=== PATIENT | female | born 1950 | race African-American/Black ===

== ENCOUNTER 2020-06-26 14:42 | Inpatient (IN) | payer MEDICARE, MEDICAID ==
[~2020-06-26] VITALS: Ht 167.6 cm; Wt 94.9 kg
[2020-06-26] MEDS ORDERED: MORPHINE SULFATE 4 MG/ML CPJ (NOT FOR IM USE) IV ONE (16:00)
[2020-06-26] MEDS ORDERED: SODIUM CHLORIDE 0.9% 1,000 ML IV ONE (16:00)
[2020-06-26 16:14] LABS: BASOPHILS % 0.6 % (0.0-2.0); EOSINOPHILS % 0.6 % (0.0-5.0); HEMATOCRIT. 38.7 % (36.0-48.0); HEMOGLOBIN. 12.9 g/dL (12.0-16.0); LYMPHOCYTES % 14.1 % (20.0-50.0); MEAN CORPUSCULAR HEMOGLOBIN 29.9 pg (28.0-32.0); MEAN PLATELET VOLUME 8.5 fl (7.4-10.4); MONOCYTES % 6.2 % (2.0-8.0); NEUTROPHILS % 78.5 % (40.0-76.0); PLATELET 267 x1000/uL (130-400)
[2020-06-26 16:19] LABS: PROTHROMBIN TIME 10.7 sec (9.6-11.0)
[2020-06-26 16:21] LABS: CHLORIDE 105 mEq/L (98-107)
[2020-06-26 16:31] LABS: CLARITY URINE TURBID (CLEAR); COLOR URINE ORANGE (YELLOW); KETONES URINE 3+ (NEGATIVE); LEUKOCYTE ESTERASE URINE 2+ (NEGATIVE); NITRITE URINE NEGATIVE (NEGATIVE); OCCULT BLOOD URINE 3+ (NEGATIVE); PROTEIN URINE 2+ (NEGATIVE); SPECIFIC GRAVITY URINE 1.035 (1.005-1.030)
[2020-06-26] MEDS ORDERED: CEFTRIAXONE 1 G PREMIX 50 ML IV ONE (18:15)
[2020-06-26] MEDS ORDERED: ONDANSETRON HCL 4MG/2ML INJ IV PRN (20:00)
[2020-06-26] MEDS ORDERED: IPRATROPIUM/ALBUTEROL 0.5-3(2.5)MG/3ML NEB HHN PRN (20:00)
[2020-06-26] MEDS ORDERED: DIPHENHYDRAMINE 50MG/ML VIAL IV PRN (20:00)
[2020-06-26] MEDS ORDERED: ACETAMINOPHEN 325MG TABLET PO PRN (20:00)
[2020-06-26] MEDS ORDERED: CLONIDINE 0.1MG TABLET PO PRN (20:00)
[2020-06-26 20:11] LABS: PHOSPHORUS 2.5 mg/dL (2.5-4.9)
[2020-06-26] MEDS ORDERED: IOHEXOL-300 100 ML BOTTLE ONE (22:23)
[2020-06-27] MEDS: MORPHINE SULFATE 2 MG/ML CPJ (NOT FOR IM USE) IV PRN ×2 (00:22→13:27)
[2020-06-27 11:30] VITALS: BP 111/53
[2020-06-27 11:34] LABS: BASOPHILS % 0.4 % (0.0-2.0); EOSINOPHILS % 1.9 % (0.0-5.0); HEMATOCRIT. 39.4 % (36.0-48.0); LYMPHOCYTES % 19.1 % (20.0-50.0); MEAN CORPUSCULAR HEMOGLOBIN 30.2 pg (28.0-32.0); MEAN CORPUSCULAR VOLUME 91.6 fL (81.0-99.0); MONOCYTES % 8.1 % (2.0-8.0); NEUTROPHILS % 70.5 % (40.0-76.0); PLATELET 262 x1000/uL (130-400); RED CELL DISTRIBUTION WIDTH 16.6 % (11.6-14.6)
[2020-06-27 11:48] LABS: CHLORIDE 107 mEq/L (98-107)
[2020-06-27 11:54] LABS: LDL CHOLESTEROL 176 mg/dL (5-100)
[2020-06-27 11:55] LABS: HDL CHOLESTEROL 58 mg/dL (40-59)
[2020-06-27 12:00] VITALS: BP 111/53
[2020-06-27 16:00] VITALS: BP 109/40
[2020-06-27] MEDS ORDERED: CEFTRIAXONE 1,000 MG in DEXTROSE 5% WATER 50 ML IV SCH (18:00)
[2020-06-27] MEDS ORDERED: CEFTRIAXONE 1 G PREMIX 50 ML IV SCH (18:00)
[2020-06-27] MEDS ORDERED: DEXTROSE 50% WATER 50ML SYRINGE IV PRN (19:30)
[2020-06-27 20:00] VITALS: BP 112/56
[2020-06-27] MEDS: INSULIN LISPRO 100 UNITS/ML SUBCUT SCH (20:28)
[2020-06-27] MEDS: BLOOD SUGAR DIAGNOSTIC STRIP TEST SCH (20:28)
[2020-06-28] VITALS: BP 103/55
[2020-06-28] MEDS: MORPHINE SULFATE 2 MG/ML CPJ (NOT FOR IM USE) IV PRN ×2 (03:21→09:59)
[2020-06-28 04:00] VITALS: BP 113/66
[2020-06-28] MEDS: INSULIN LISPRO 100 UNITS/ML SUBCUT SCH (06:14)
[2020-06-28] MEDS: BLOOD SUGAR DIAGNOSTIC STRIP TEST SCH (06:14)
[2020-06-28 08:00] VITALS: BP 124/68
[2020-06-28 11:49] VITALS: BP 106/42
[2020-06-28] MEDS ORDERED: HYDROCODONE/ACETAMINOPHEN 5/325MG TABLET PO PRN (12:00)
[2020-06-28] MEDS ORDERED: HYDR-4009 MT (13:08)
[2020-06-28] MEDS ORDERED: ATOR20TA65 MT (13:08)
[2020-06-28] MEDS ORDERED: NITR100C MT (13:08)
[2020-06-28 14:39] VITALS: BP 106/42
[2020-06-28 16:00] VITALS: BP 129/71
== END 2020-06-28 16:58 | disposition home or self-care (01) | DRG 755 ==
LOC: ER 14:42 → MICUSO 23:44 → 8WST 06-27 08:26
PROVIDERS: ADMIT Internal Medicine; ATTEND Internal Medicine
DX: C54.1 Malignant neoplasm of endometrium (principal); N39.0 Urinary tract infection, site not specified; E78.5 Hyperlipidemia, unspecified; M19.90 Unspecified osteoarthritis, unspecified site; N93.9 Abnormal uterine and vaginal bleeding, unspecified
CPT/HCPCS: 36415; 71045; 74177; 80053; 80061; 81003; 82962; 83036; 83605; 83735; 84100; 84443; 85025; 86304; 86850; 86900; 93005; 93970; 96374; 99285; J0696; J2270; J2405; J7030; J7060; Q9967

== ENCOUNTER 2020-06-30 17:12 | Inpatient (IN) | payer MEDICARE, MEDICAID ==
[~2020-06-30] VITALS: Ht 170.2 cm; Wt 98.0 kg
[~2020-06-30 17:12] MED LIST: ATOR20TA65 MT; HYDR-4009 MT; NITR100C MT
[2020-06-30] MEDS ORDERED: SODIUM CHLORIDE 0.9% 1,000 ML IV ONE (18:39)
[2020-06-30] MEDS ORDERED: ONDANSETRON HCL 4MG/2ML INJ IV STA (18:39)
[2020-06-30] MEDS ORDERED: MORPHINE SULFATE 4 MG/ML CPJ (NOT FOR IM USE) IV STA ×2 (18:39→22:45)
[2020-06-30 19:01] LABS: BASOPHILS % 0.3 % (0.0-2.0); EOSINOPHILS % 0.4 % (0.0-5.0); HEMATOCRIT. 34.3 % (36.0-48.0); HEMOGLOBIN. 11.4 g/dL (12.0-16.0); LYMPHOCYTES % 12.3 % (20.0-50.0); MEAN CORPUSCULAR HEMOGLOBIN 30.3 pg (28.0-32.0); MEAN CORPUSCULAR VOLUME 91.1 fL (81.0-99.0); MEAN PLATELET VOLUME 7.7 fl (7.4-10.4); MONOCYTES % 6.4 % (2.0-8.0); NEUTROPHILS % 80.6 % (40.0-76.0); PLATELET 256 x1000/uL (130-400); RED BLOOD CELL COUNT 3.77 mill/uL (4.2-5.4); RED CELL DISTRIBUTION WIDTH 15.8 % (11.6-14.6)
[2020-06-30 19:06] LABS: CHLORIDE 105 mEq/L (98-107)
[2020-06-30 19:11] LABS: PARTIAL THROMBOPLASTIN TIME 26.8 sec (23.4-31.0); PROTHROMBIN TIME 10.8 sec (9.6-11.0)
[2020-06-30 19:34] LABS: CLARITY URINE TURBID (CLEAR); COLOR URINE RED (YELLOW); KETONES URINE 3+ (NEGATIVE); LEUKOCYTE ESTERASE URINE 3+ (NEGATIVE); NITRITE URINE POSITIVE (NEGATIVE); OCCULT BLOOD URINE 2+ (NEGATIVE); PROTEIN URINE 2+ (NEGATIVE); SPECIFIC GRAVITY URINE 1.026 (1.005-1.030); UROBILINOGEN URINE 0.2 E.U./dL (0.2-1.0)
[2020-06-30] MEDS ORDERED: CEFTRIAXONE 1 G PREMIX 50 ML IV ONE (21:00)
[2020-06-30] MEDS ORDERED: CEFTRIAXONE 1 G PREMIX 50 ML IV SCH (22:00)
[2020-06-30] MEDS ORDERED: ONDANSETRON HCL 4MG/2ML INJ IV PRN (22:07)
[2020-06-30] MEDS ORDERED: LORAZEPAM 2MG/ML CPJ IV PRN (22:10)
[2020-06-30] MEDS ORDERED: MORPHINE SULFATE 2 MG/ML CPJ (NOT FOR IM USE) IV PRN (22:10)
[2020-06-30] MEDS ORDERED: CLONIDINE 0.1MG TABLET PO PRN (22:10)
[2020-06-30] MEDS: SODIUM CHLORIDE 0.9% 1,000 ML IV SCH (22:59)
[2020-07-01 01:40] VITALS: BP 117/62
[2020-07-01 04:00] VITALS: BP 104/56
[2020-07-01 07:20] LABS: BASOPHILS % 0.7 % (0.0-2.0); EOSINOPHILS % 1.1 % (0.0-5.0); HEMATOCRIT. 29.9 % (36.0-48.0); MEAN CORPUSCULAR HEMOGLOBIN 30.4 pg (28.0-32.0); MEAN CORPUSCULAR VOLUME 90.6 fL (81.0-99.0); MEAN PLATELET VOLUME 7.6 fl (7.4-10.4); MONOCYTES % 8.8 % (2.0-8.0); NEUTROPHILS % 66.4 % (40.0-76.0); PLATELET 233 x1000/uL (130-400); RED CELL DISTRIBUTION WIDTH 16.4 % (11.6-14.6)
[2020-07-01 07:32] LABS: CHLORIDE 108 mEq/L (98-107)
[2020-07-01 07:39] LABS: PHOSPHORUS 2.8 mg/dL (2.5-4.9)
[2020-07-01 08:00] VITALS: BP 99/56
[2020-07-01] MEDS ORDERED: ENOXAPARIN 30MG/0.3ML SYR SUBCUT SCH (09:00)
[2020-07-01] MEDS: FERROUS SULFATE 325MG TABLET PO SCH (09:05)
[2020-07-01] MEDS: FOLIC ACID 1MG TABLET PO SCH (09:05)
[2020-07-01 12:00] VITALS: BP 97/52
[2020-07-01] MEDS ORDERED: LACTULOSE 20G/30ML UDC PO SCH ×2 (12:15→21:00)
[2020-07-01] MEDS: SODIUM CHLORIDE 0.9% 1,000 ML IV SCH (12:22)
[2020-07-01] MEDS: DOCUSATE SODIUM 250MG CAPSULE PO SCH (12:22)
[2020-07-01] MEDS: HYDROCODONE/ACETAMINOPHEN 5/325MG TABLET PO PRN (12:23)
[2020-07-01 16:00] VITALS: BP 99/54
[2020-07-01 20:00] VITALS: BP 92/50
[2020-07-01] MEDS ORDERED: CEFTRIAXONE 1,000 MG in DEXTROSE 5% WATER 50 ML IV SCH (21:00)
[2020-07-02] VITALS: BP 119/68
[2020-07-02 04:00] VITALS: BP 92/39
[2020-07-02 06:21] LABS: BASOPHILS % 0.4 % (0.0-2.0); HEMATOCRIT. 29.2 % (36.0-48.0); HEMOGLOBIN. 9.7 g/dL (12.0-16.0); MEAN CORPUSCULAR HEMOGLOBIN 30.3 pg (28.0-32.0); MEAN CORPUSCULAR VOLUME 91.7 fL (81.0-99.0); MEAN PLATELET VOLUME 8.1 fl (7.4-10.4); MONOCYTES % 9.6 % (2.0-8.0); PLATELET 243 x1000/uL (130-400); RED BLOOD CELL COUNT 3.19 mill/uL (4.2-5.4); RED CELL DISTRIBUTION WIDTH 16.1 % (11.6-14.6)
[2020-07-02 06:32] VITALS: BP 98/58
[2020-07-02] MEDS: HYDROCODONE/ACETAMINOPHEN 5/325MG TABLET PO PRN (06:32)
[2020-07-02 06:36] LABS: CHLORIDE 110 mEq/L (98-107)
[2020-07-02 06:44] LABS: TOTAL IRON BINDING CAPACITY 245 ug/dL (250-450)
[2020-07-02 08:00] VITALS: BP 98/54
[2020-07-02 08:06] LABS: FOLIC ACID (FOLATE) SERUM 15.1 ng/mL (>5.38)
[2020-07-02] MEDS: FOLIC ACID 1MG TABLET PO SCH (09:21)
[2020-07-02] MEDS: FERROUS SULFATE 325MG TABLET PO SCH (09:21)
[2020-07-02] MEDS: DOCUSATE SODIUM 250MG CAPSULE PO SCH (09:21)
[2020-07-02 12:00] VITALS: BP 100/48
[2020-07-02] MEDS ORDERED: LEVO500T2 MT (12:09)
[2020-07-02 13:02] VITALS: BP 100/49
== END 2020-07-02 14:46 | disposition home or self-care (01) | DRG 872 ==
LOC: ER 17:12 → EDBEDREQ 21:37 → ENRESERV 22:14 → CANRESERV 22:14 → EDBEDREQSVC 23:07 → EDBEDREQTM 23:07 → EDBEDREQSVC 23:32 → ENRESERV 07-01 00:17 → 5WST 07-01 01:40
PROVIDERS: ADMIT Internal Medicine Nephrology; ATTEND Internal Medicine Nephrology
DX: A41.9 Sepsis, unspecified organism (principal); E44.1 Mild protein-calorie malnutrition; N39.0 Urinary tract infection, site not specified; C55 Malignant neoplasm of uterus, part unspecified; D63.8 Anemia in other chronic diseases classified elsewhere; E66.01 Morbid (severe) obesity due to excess calories; G47.30 Sleep apnea, unspecified; J44.9 Chronic obstructive pulmonary disease, unspecified; Z85.42 Personal history of malignant neoplasm of other parts of uterus; Z68.33 Body mass index [BMI] 33.0-33.9, adult; Z87.891 Personal history of nicotine dependence; Z79.899 Other long term (current) drug therapy
CPT/HCPCS: 36415; 71045; 74176; 76830; 76856; 80048; 80053; 81003; 82270; 82607; 82728; 82746; 83540; 83550; 83735; 84100; 85025; 86850; 86900; 93005; 99285; J0696; J2270; J2405; J7030; J7060

== ENCOUNTER → 2020-08-17 | Outpatient (CLI) | payer MEDICARE, MEDICAID ==
[~2020-08-17] MED LIST changes: +LEVO500T2 MT; -NITR100C MT
== END | disposition home or self-care (01) ==
LOC: LAB 08:14
PROVIDERS: ATTEND Internal Medicine Nephrology
DX: Z20.828 Contact with and (suspected) exposure to other viral communicable diseases (principal)
CPT/HCPCS: C9803; U0003

== ENCOUNTER → 2020-08-19 | Outpatient (CLI) | payer MEDICARE, MEDICAID | END | disposition home or self-care (01) | LOC: MAMMO 09:34 | PROVIDERS: ATTEND Internal Medicine Nephrology | DX: Z12.31 Encounter for screening mammogram for malignant neoplasm of breast (principal) | CPT/HCPCS: 77067 ==

== ENCOUNTER → 2021-03-31 | Outpatient (CLI) | payer MEDICARE, MEDICAID ==
[~2021-03-31] MED LIST changes: +BARIUM SULFATE 450ML ORAL SUSP ONE; +DOCU-150 PO; +IOHEXOL-300 100 ML BOTTLE ONE; -LEVO500T2 MT; +MSCON15 PO; +XAR15 MT
== END | disposition home or self-care (01) ==
LOC: CT 07:51
DX: C54.1 Malignant neoplasm of endometrium (principal); R91.8 Other nonspecific abnormal finding of lung field; K57.30 Diverticulosis of large intestine without perforation or abscess without bleeding; K76.89 Other specified diseases of liver; I25.10 Atherosclerotic heart disease of native coronary artery without angina pectoris
CPT/HCPCS: 71260; 74177; Q9967

== ENCOUNTER → 2021-04-04 | Outpatient (CLI) | payer MEDICARE, MEDICAID ==
[~2021-04-04] MED LIST changes: -BARIUM SULFATE 450ML ORAL SUSP ONE; -IOHEXOL-300 100 ML BOTTLE ONE
== END | disposition home or self-care (01) ==
LOC: MAMMO 09:26
PROVIDERS: ATTEND Internal Medicine Nephrology
DX: N63.21 Unspecified lump in the left breast, upper outer quadrant (principal); N63.10 Unspecified lump in the right breast, unspecified quadrant; R92.8 Other abnormal and inconclusive findings on diagnostic imaging of breast
CPT/HCPCS: 77066